=== PATIENT | male | born 1980 | race Caucasian/White ===

== ENCOUNTER 2021-02-20 17:53 | Emergency (ER) | payer OTHER, SELFPAY ==
[2021-02-20 17:59] VITALS: BP 133/88; PULSE 103; RESP 18; O2SAT 98; BMI 20.7
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
[2021-02-20 18:05] VITALS: BP 133/88; PULSE 101; RESP 18; TEMP 36.8; O2SAT 99
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
[2021-02-20] MEDS: acetaminophen 500 mg Tablet 1000 MG PO (18:57)
[2021-02-20] MEDS: ibuprofen 200 mg Tablet 400 MG PO (19:13)
[2021-02-20 19:29] VITALS: BP 128/79; PULSE 74; O2SAT 98
== END 2021-02-20 19:32 | disposition home or self-care (01) ==
PROVIDERS: Emergency Provider Nurse Practitioner Family; PCP Nurse Practitioner
DX: S50.312A Abrasion of left elbow, initial encounter (principal); S70.02XA Contusion of left hip, initial encounter; V23.4XXA Motorcycle driver injured in collision with car, pick-up truck or van in traffic accident, initial encounter
CPT/HCPCS: 72100; 72125; 73080; 73502; 73610; 99283; E0114

== ENCOUNTER 2023-06-21 05:22 | Emergency (ER) | payer SELFPAY ==
[2023-06-21 05:28] VITALS: BP 157/100; PULSE 93; RESP 20; TEMP 36.6; O2SAT 98; BMI 22.1
--- NOTE | 2023-06-21 05:34 | CTR_ITS ---
PROCEDURE INFORMATION: Exam: CT Abdomen And Pelvis Without Contrast Exam date and time: 06/21/2023 5:39 AM Age: 42 years old Clinical indication: Abdominal pain; Prior surgery; Surgery date: 6+ months; Surgery type: Hemorrhoidectomy; Patient HX: C/O left flank pain. TECHNIQUE: Imaging protocol: Computed tomography of the abdomen and pelvis without contrast. Radiation optimization: All CT scans at this facility use at least one of these dose optimization techniques: automated exposure control; mA and/or kV adjustment per patient size (includes targeted exams where dose is matched to clinical indication); or iterative reconstruction. COMPARISON: CR XR hip LT 2-3V wo/w pel* [id number] 02/20/2021 6:27 PM RADIATION DOSE METRICS: Total DLP (mGy-cm): 334.13 FINDINGS: Lungs: Lung bases are clear as visualized. Heart: Base of heart is unremarkable as visualized. Liver: Normal. No mass. Gallbladder and bile ducts: Normal. No calcified stones. No ductal dilation. Pancreas: Normal. No ductal dilation. Spleen: There are multiple hypoattenuation scattered throughout the spleen the 2 largest of which are appreciated in the posterior aspect, the largest of the hypoattenuation measures a proximally 2.4 x 2.4 x 2.4 cm, and demonstrates a fluid internal attenuation. Adrenal glands: Normal. No mass. Kidneys and ureters: Within the proximal ureter just distal to the left ureteropelvic junction there is a calcified 4 mm nephrolith. There is upstream pelvic dilation and left mild hydronephrosis. Stomach and bowel: Unremarkable. No obstruction. No mucosal thickening. Appendix: No evidence of appendicitis. Intraperitoneal space: Unremarkable. No free air. No significant fluid collection. Vasculature: Unremarkable. No abdominal aortic aneurysm. Lymph nodes: Unremarkable. No enlarged lymph nodes. Urinary bladder: Unremarkable as visualized. Reproductive: Unremarkable as visualized. Bones/joints: Unremarkable. No acute fracture. Soft tissues: Unremarkable. CT/CT kidney stone [id number] IMPRESSION: 1. Obstructing nephroliths within the left proximal ureter with associated upstream pelvic dilation and mild left hydronephrosis. 2. Multiple fluid attenuating hypoattenuation within the spleen, nonspecific, may represent pseudocyst, congenital cysts, lymphangioma, less likely malignancy/infection. Correlate with clinical signs and symptoms, outpatient imaging as clinically appropriate.
--- NOTE | 2023-06-21 05:35 | W.ED.ABDPA2 ---
Documented by User: Spencer Garrido DO 06/23/23 19:46 HPI - Abdominal Pain General: Chief Complaint: Abdominal Pain Stated Complaint: Left side pain Time Seen by Provider: 06/21/23 05:25 History of Present Illness: Patient presents to the ER with complaints of sudden onset stabbing left flank pain. Patient said it woke him up from sleep couple hours ago. Patient does not radiate. Patient does have nausea with this. Patient does have a history of kidney stones in the distant past. Patient denies any fevers chills Review of Systems General: Reports: 10 or more systems reviewed and unremarkable except in HPI and below Physical Exam Const: COMMON NORMALS: average body habitus, patient oriented x3, no limitations, healthy appearing, alert and well nourished HENMT: COMMON NORMALS: normocephalic, atraumatic, hearing grossly normal bilaterally, Normal external nose present, moist oral mucous membranes and oropharynx normal HEAD & SCALP: normocephalic and atraumatic NOSE: Normal external nose present Neck/C-Spine: COMMON NORMALS: no JVD Chest: COMMONS NORMALS: normal inspection of the chest Resp: COMMON NORMALS: normal respiratory effort, No retractions, No use of accessory muscles and clear to auscultation bilaterally AUSCULTATION: clear to auscultation bilaterally Cardio: COMMON NORMALS: no JVD, regular rate, regular rhythm, S1 normal heart sound present, S2 normal heart sound present, No gallops present (Cardio), No clicks present (Cardio) and No murmurs present (Cardio) RATE: regular rate RHYTHM: regular rhythm HEART SOUNDS: S1 normal heart sound present and S2 normal heart sound present GI: COMMON NORMALS: Normal to inspection, nondistended, normoactive bowel sounds present, Soft to palpation, non-tender, No hepatosplenomegaly present and no masses PALPATION: Yes Soft to palpation and Yes No hepatosplenomegaly present Neuro: COMMON NORMALS: patient oriented x3 SENSORIUM/ORIENTATION: Yes alert Course Vital Signs: Vital signs: Vital Signs Temperature 97.8 F 06/21/23 05:28 Pulse Rate 73 06/21/23 07:38 Respiratory Rate 18 06/21/23 06:41 Blood Pressure 118/72 06/21/23 07:38 Pulse Oximetry 96 06/21/23 07:38 Oxygen Delivery Me thod Room Air 06/21/23 06:41 MDM - Abdominal Pain Differential Diagnosis Likely calculus of kidney; Unlikely abdominal pain, acute appendicitis, constipation, diverticulitis, endometriosis, gastroenteritis, pancreatitis or small bowel obstruction Medical Records I reviewed the patient's medical records. Lab Data I reviewed the patient's lab results. 06/21/23 05:30 06/21/23 05:30 Labs/Radiology: Radiology Impressions Abdomen/Pelvis CT 06/21/23 05:34 IMPRESSION: 1. Obstructing nephroliths within the left proximal ureter with associated upstream pelvic dilation and mild left hydronephrosis. 2. Multiple fluid attenuating hypoattenuation within the spleen, nonspecific, may represent pseudocyst, congenital cysts, lymphangioma, less likely malignancy/infection. Correlate with clinical signs and symptoms, outpatient imaging as clinically appropriate. Laboratory Results WBC 9.28 10^3/uL (3.29-11.43) 06/21/23 05:30 RBC 4.96 10^6/uL (3.85-5.65) 06/21/23 05:30 Hgb 15.70 g/dL (11.27-16.99) 06/21/23 05:30 Hct 44.1 % (37-53) 06/21/23 05:30 MCV 88.9 fl (82-101) 06/21/23 05:30 MCH 31.7 pg (27-33) 06/21/23 05:30 MCHC 35.6 g/dL (30-55) 06/21/23 05:30 RDW 11.7 % (12.1-15.1) L 06/21/23 05:30 Plt Count 242 10^3/cmm (157-399) 06/21/23 05:30 MPV 8.6 fL (7.4-10.4) 06/21/23 05:30 Neut % (Auto) 82.3 % 06/21/23 05:30 Lymph % (Auto) 11.0 % 06/21/23 05:30 [place] % (Auto) 5.5 % 06/21/23 05:30 Eos % (Auto) 0.6 % 06/21/23 05:30 Baso % (Auto) 0.4 % 06/21/23 05:30 Neut # (Auto) 7.63 10^3/uL (1.8-7.7) 06/21/23 05:30 Lymph # (Auto) 1.0 10^3/uL (0.8-4.8) 06/21/23 05:30 [place] # (Auto) 0.5 10^3/uL (0.2-0.9) 06/21/23 05:30 Eos # (Auto) 0.1 10^3/uL (0.0-0.8) 06/21/23 05:30 Baso # (Auto) 0.0 10^3/uL (0.0-0.1) 06/21/23 05:30 Nucleated RBC % (auto) 0 % 06/21/23 05:30 Nucleated RBCs # 0.0 /100WBC 06/21/23 05:30 Sodium 141 mmol/L (136-145) 06/21/23 05:30 Potassium 4.1 mmol/L (3.5-5.1) 06/21/23 05:30 Chloride 104 mmol/L (98-107) 06/21/23 05:30 Carbon Dioxide 21 mmol/L (22-29) L 06/21/23 05:30 Anion Gap 20.1 (5-19) H 06/21/23 05:30 BUN 17 mg/dL (6-20) 06/21/23 05:30 Creatinine 1.0 mg/dL (0.7-1.2) 06/21/23 05:30 GFR Calculation 82.8 mL/min (90-130) L 06/21/23 05:30 Glucose 126 mg/dL (65-115) H 06/21/23 05:30 Calculated Osmolality 295 mOsm/kg (285-295) 06/21/23 05:30 Calcium 10.2 mg/dL (8.5-10.5) 06/21/23 05:30 Total Bilirubin 0.7 mg/dL (0.15-1.2) 06/21/23 05:30 AST 22 U/L (0-40) 06/21/23 05:30 ALT 14 U/L (0-41) 06/21/23 05:30 Alkaline Phosphatase 90 U/L (40-130) 06/21/23 05:30 Total Protein 8.1 g/dL (6.6-8.7) 06/21/23 05:30 Albumin 4.9 g/dL (3.5-5.2) 06/21/23 05:30 Globulin 3.2 g/dL (1.3-4.6) 06/21/23 05:30 Urine Color Straw (Yellow) 06/21/23 06:42 Urine Appearance Clear (CLEAR) 06/21/23 06:42 Urine pH 8 (5-7) H 06/21/23 06:42 Ur Specific [place] 1.010 (1.005-1.030) 06/21/23 06:42 Urine Protein Neg (Negative) 06/21/23 06:42 Urine Glucose (UA) Norm (Normal) 06/21/23 06:42 Urine Ketones 1+ (Negative) H 06/21/23 06:42 Urine Blood 2+ (Negative) H 06/21/23 06:42 Urine Nitrate Negative (Negative) 06/21/23 06:42 Urine Bilirubin Neg (Negative) 06/21/23 06:42 Prot Sulfosalicylic Acd Negative (Negative) 06/21/23 06:42 Urine Urobilinogen Norm mg/dL (Negative) 06/21/23 06:42 Ur Leukocyte Esterase Negative (Negative) 06/21/23 06:42 Urine RBC 0-4 /hpf (0-2) H 06/21/23 06:42 Urine WBC None /hpf (0-5) 06/21/23 06:42 Ur Squamous Epith Cells None /hpf (0-5) 06/21/23 06:42 Amorphous Sediment 2+ /hpf 06/21/23 06:42 Urine Bacteria 1+ /hpf (NONE) H 06/21/23 06:42 All radiology interpretation(s) finalized by discharge Discharge Plan Discharge Patient Disposition: Home Clinical Impression: Kidney stone on left side Condition: Stable Prescriptions: New ondansetron 4 mg tablet,disintegrating 4 mg PO Q6H PRN (Reason: nausea and vomiting) Qty: 20 0RF hydrocodone-acetaminophen 5-325 mg tablet 1 tab PO Q8H PRN (Reason: pain) Qty: 20 0RF Flomax 0.4 mg capsule 0.4 mg PO DAILY Qty: 7 0RF No Action hydrocodone-acetaminophen 5-325 mg tablet 1 tab PO Q6H PRN (Reason: pain) Qty: 7 0RF Discharge Orders: Discharge ED (Routine); Ordered 06/21/23 Ordered By: Angelo Cason Referrals: Guillermina Sauer STREETS AND BUILDINGS DECORATOR [Primary Care Provider] - 4-7 days Discharge Diet: Advance as tolerated Discharge Activity: Resume usual activity Patient Instructions: Kidney Stones (ED), Renal Colic (ED), Opioid Safety, Pain Management Activity Restrictions/Additional Instructions: Drink plenty of fluids in the next 1 week, please take medications as prescribed in which please further follow-up with your primary care doctor in 3 to 5 days in which please return in the interim if any of your symptoms persist or worse Stand Alone Forms: Work/School Release Coding Level of Care Code ED Fur Scraper for Chg Fwd Documented by User: Angelo Cason 06/21/23 07:26 HPI - Abdominal Pain General: Chief Complaint: Abdominal Pain Stated Complaint: Left side pain Time Seen by Provider: 06/21/23 05:25 Course Vital Signs: Vital signs: Vital Signs Temperature 97.8 F 06/21/23 05:28 Pulse Rate 73 06/21/23 07:38 Respiratory Rate 18 06/21/23 06:41 Blood Pressure 118/72 06/21/23 07:38 Pulse Oximetry 96 06/21/23 07:38 Oxygen Delivery Me thod Room Air 06/21/23 06:41 MDM - Abdominal Pain Medical Decision Making This patient was signed out to myself Dr. Cason by Dr. Garrido please refer to him for additional charting in regards to this Lab Data 06/21/23 05:30 06/21/23 05:30 Labs/Radiology: Radiology Impressions Abdomen/Pelvis CT 06/21/23 05:34 IMPRESSION: 1. Obstructing nephroliths within the left proximal ureter with associated upstream pelvic dilation and mild left hydronephrosis. 2. Multiple fluid attenuating hypoattenuation within the spleen, nonspecific, may represent pseudocyst, congenital cysts, lymphangioma, less likely malignancy/infection. Correlate with clinical signs and symptoms, outpatient imaging as clinically appropriate. Laboratory Results WBC 9.28 10^3/uL (3.29-11.43) 06/21/23 05:30 RBC 4.96 10^6/uL (3.85-5.65) 06/21/23 05:30 Hgb 15.70 g/dL (11.27-16.99) 06/21/23 05:30 Hct 44.1 % (37-53) 06/21/23 05:30 MCV 88.9 fl (82-101) 06/21/23 05:30 MCH 31.7 pg (27-33) 06/21/23 05:30 MCHC 35.6 g/dL (30-55) 06/21/23 05:30 RDW 11.7 % (12.1-15.1) L 06/21/23 05:30 Plt Count 242 10^3/cmm (157-399) 06/21/23 05:30 MPV 8.6 fL (7.4-10.4) 06/21/23 05:30 Neut % (Auto) 82.3 % 06/21/23 05:30 Lymph % (Auto) 11.0 % 06/21/23 05:30 [place] % (Auto) 5.5 % 06/21/23 05:30 Eos % (Auto) 0.6 % 06/21/23 05:30 Baso % (Auto) 0.4 % 06/21/23 05:30 Neut # (Auto) 7.63 10^3/uL (1.8-7.7) 06/21/23 05:30 Lymph # (Auto) 1.0 10^3/uL (0.8-4.8) 06/21/23 05:30 [place] # (Auto) 0.5 10^3/uL (0.2-0.9) 06/21/23 05:30 Eos # (Auto) 0.1 10^3/uL (0.0-0.8) 06/21/23 05:30 Baso # (Auto) 0.0 10^3/uL (0.0-0.1) 06/21/23 05:30 Nucleated RBC % (auto) 0 % 06/21/23 05:30 Nucleated RBCs # 0.0 /100WBC 06/21/23 05:30 Sodium 141 mmol/L (136-145) 06/21/23 05:30 Potassium 4.1 mmol/L (3.5-5.1) 06/21/23 05:30 Chloride 104 mmol/L (98-107) 06/21/23 05:30 Carbon Dioxide 21 mmol/L (22-29) L 06/21/23 05:30 Anion Gap 20.1 (5-19) H 06/21/23 05:30 BUN 17 mg/dL (6-20) 06/21/23 05:30 Creatinine 1.0 mg/dL (0.7-1.2) 06/21/23 05:30 GFR Calculation 82.8 mL/min (90-130) L 06/21/23 05:30 Glucose 126 mg/dL (65-115) H 06/21/23 05:30 Calculated Osmolality 295 mOsm/kg (285-295) 06/21/23 05:30 Calcium 10.2 mg/dL (8.5-10.5) 06/21/23 05:30 Total Bilirubin 0.7 mg/dL (0.15-1.2) 06/21/23 05:30 AST 22 U/L (0-40) 06/21/23 05:30 ALT 14 U/L (0-41) 06/21/23 05:30 Alkaline Phosphatase 90 U/L (40-130) 06/21/23 05:30 Total Protein 8.1 g/dL (6.6-8.7) 06/21/23 05:30 Albumin 4.9 g/dL (3.5-5.2) 06/21/23 05:30 Globulin 3.2 g/dL (1.3-4.6) 06/21/23 05:30 Urine Color Straw (Yellow) 06/21/23 06:42 Urine Appearance Clear (CLEAR) 06/21/23 06:42 Urine pH 8 (5-7) H 06/21/23 06:42 Ur Specific [place] 1.010 (1.005-1.030) 06/21/23 06:42 Urine Protein Neg (Negative) 06/21/23 06:42 Urine Glucose (UA) Norm (Normal) 06/21/23 06:42 Urine Ketones 1+ (Negative) H 06/21/23 06:42 Urine Blood 2+ (Negative) H 06/21/23 06:42 Urine Nitrate Negative (Negative) 06/21/23 06:42 Urine Bilirubin Neg (Negative) 06/21/23 06:42 Prot Sulfosalicylic Acd Negative (Negative) 06/21/23 06:42 Urine Urobilinogen Norm mg/dL (Negative) 06/21/23 06:42 Ur Leukocyte Esterase Negative (Negative) 06/21/23 06:42 Urine RBC 0-4 /hpf (0-2) H 06/21/23 06:42 Urine WBC None /hpf (0-5) 06/21/23 06:42 Ur Squamous Epith Cells None /hpf (0-5) 06/21/23 06:42 Amorphous Sediment 2+ /hpf 06/21/23 06:42 Urine Bacteria 1+ /hpf (NONE) H 06/21/23 06:42 Discharge Plan Discharge Patient Disposition: Home Clinical Impression: Kidney stone on left side Condition: Stable Prescriptions: New ondansetron 4 mg tablet,disintegrating 4 mg PO Q6H PRN (Reason: nausea and vomiting) Qty: 20 0RF hydrocodone-acetaminophen 5-325 mg tablet 1 tab PO Q8H PRN (Reason: pain) Qty: 20 0RF Flomax 0.4 mg capsule 0.4 mg PO DAILY Qty: 7 0RF No Action hydrocodone-acetaminophen 5-325 mg tablet 1 tab PO Q6H PRN (Reason: pain) Qty: 7 0RF Discharge Orders: Discharge ED (Routine); Ordered 06/21/23 Ordered By: Angelo Cason Referrals: Guillermina Sauer, STREETS AND BUILDINGS DECORATOR [Primary Care Provider] - 4-7 days Discharge Diet: Advance as tolerated Discharge Activity: Resume usual activity Patient Instructions: Kidney Stones (ED), Renal Colic (ED), Opioid Safety, Pain Management Activity Restrictions/Additional Instructions: Drink plenty of fluids in the next 1 week, please take medications as prescribed in which please further follow-up with your primary care doctor in 3 to 5 days in which please return in the interim if any of your symptoms persist or worse Stand Alone Forms: Work/School Release Coding Level of Care Code ED Fur Scraper for Arik Ortiz
[2023-06-21 05:39] VITALS: BP 146/87; RESP 22
[2023-06-21 05:40] LABS: Basophils % 0.4 %; Eosinophils # 0.1 10^3/uL (0.0-0.8); Eosinophils % 0.6 %; Hematocrit 44.1 % (37-53); Mean Corpuscular HGB Conc 35.6 g/dL (30-55); Mean Corpuscular Hemoglobin 31.7 pg (27-33); Mean Corpuscular Volume 88.9 fl (82-101); Mean Platelet Volume 8.6 fL (7.4-10.4); Monocytes # 0.5 10^3/uL (0.2-0.9); Monocytes % 5.5 %; Neutrophils # 7.63 10^3/uL (1.8-7.7); Neutrophils % 82.3 %; Nucleated Red Blood Cells % 0 %; Platelet Count 242 10^3/cmm (157-399); Red Blood Count 4.96 10^6/uL (3.85-5.65); Red Cell Distribution Width 11.7 % (12.1-15.1); White Blood Count 9.28 10^3/uL (3.29-11.43)
[2023-06-21] MEDS: sodium chloride 0.9% 1,000 ML 999 ML IV (05:48)
[2023-06-21] MEDS: ondansetron 2 mg/ML SDV 2 mL 4 MG IVP (05:49)
[2023-06-21] MEDS: ketorolac 30 mg/mL INJ IVP (05:51)
--- NOTE | 2023-06-21 05:55 | W.ED.ABDPA2 ---
HPI - Abdominal Pain General: Chief Complaint: Abdominal Pain Stated Complaint: Left side pain Time Seen by Provider: 06/21/23 05:25 History of Present Illness: This patient was signed out to myself by Dr. Garrido please see Dr. Garrido chart in regards to additional information Course Reevaluation(s): Reevaluation #1: This patient was signed out to myself Dr. Cason by Dr. Garrido at 0600 patient has a known history of kidney stones presenting to the ER with a chief complaint of flank pain as well as abdominal pain with nausea with vomiting. Patient did not endorse any recent fevers or chills. Currently patient's imaging has been obtained lab work is partially resulted with no white blood cell count elevation with normal platelet count. Patient has been provided medication for his pain and nausea will continue to follow. Vital Signs: Vital signs: Vital Signs Temperature 97.8 F 06/21/23 05:28 Pulse Rate 65 06/21/23 06:41 Respiratory Rate 18 06/21/23 06:41 Blood Pressure 110/63 06/21/23 06:41 Pulse Oximetry 96 06/21/23 06:41 Oxygen Delivery Me thod Room Air 06/21/23 06:41 MDM - Abdominal Pain Medical Decision Making This patient was signed out to myself Dr. Cason by Dr. Garrido please see his chart for additional information. Lab Data 06/21/23 05:30 06/21/23 05:30 Labs/Radiology: Radiology Impressions Abdomen/Pelvis CT 06/21/23 05:34 IMPRESSION: 1. Obstructing nephroliths within the left proximal ureter with associated upstream pelvic dilation and mild left hydronephrosis. 2. Multiple fluid attenuating hypoattenuation within the spleen, nonspecific, may represent pseudocyst, congenital cysts, lymphangioma, less likely malignancy/infection. Correlate with clinical signs and symptoms, outpatient imaging as clinically appropriate. Laboratory Results WBC 9.28 10^3/uL (3.29-11.43) 06/21/23 05:30 RBC 4.96 10^6/uL (3.85-5.65) 06/21/23 05:30 Hgb 15.70 g/dL (11.27-16.99) 06/21/23 05:30 Hct 44.1 % (37-53) 06/21/23 05:30 MCV 88.9 fl (82-101) 06/21/23 05:30 MCH 31.7 pg (27-33) 06/21/23 05:30 MCHC 35.6 g/dL (30-55) 06/21/23 05:30 RDW 11.7 % (12.1-15.1) L 06/21/23 05:30 Plt Count 242 10^3/cmm (157-399) 06/21/23 05:30 MPV 8.6 fL (7.4-10.4) 06/21/23 05:30 Neut % (Auto) 82.3 % 06/21/23 05:30 Lymph % (Auto) 11.0 % 06/21/23 05:30 [place] % (Auto) 5.5 % 06/21/23 05:30 Eos % (Auto) 0.6 % 06/21/23 05:30 Baso % (Auto) 0.4 % 06/21/23 05:30 Neut # (Auto) 7.63 10^3/uL (1.8-7.7) 06/21/23 05:30 Lymph # (Auto) 1.0 10^3/uL (0.8-4.8) 06/21/23 05:30 [place] # (Auto) 0.5 10^3/uL (0.2-0.9) 06/21/23 05:30 Eos # (Auto) 0.1 10^3/uL (0.0-0.8) 06/21/23 05:30 Baso # (Auto) 0.0 10^3/uL (0.0-0.1) 06/21/23 05:30 Nucleated RBC % (auto) 0 % 06/21/23 05:30 Nucleated RBCs # 0.0 /100WBC 06/21/23 05:30 Sodium 141 mmol/L (136-145) 06/21/23 05:30 Potassium 4.1 mmol/L (3.5-5.1) 06/21/23 05:30 Chloride 104 mmol/L (98-107) 06/21/23 05:30 Carbon Dioxide 21 mmol/L (22-29) L 06/21/23 05:30 Anion Gap 20.1 (5-19) H 06/21/23 05:30 BUN 17 mg/dL (6-20) 06/21/23 05:30 Creatinine 1.0 mg/dL (0.7-1.2) 06/21/23 05:30 GFR Calculation 82.8 mL/min (90-130) L 06/21/23 05:30 Glucose 126 mg/dL (65-115) H 06/21/23 05:30 Calculated Osmolality 295 mOsm/kg (285-295) 06/21/23 05:30 Calcium 10.2 mg/dL (8.5-10.5) 06/21/23 05:30 Total Bilirubin 0.7 mg/dL (0.15-1.2) 06/21/23 05:30 AST 22 U/L (0-40) 06/21/23 05:30 ALT 14 U/L (0-41) 06/21/23 05:30 Alkaline Phosphatase 90 U/L (40-130) 06/21/23 05:30 Total Protein 8.1 g/dL (6.6-8.7) 06/21/23 05:30 Albumin 4.9 g/dL (3.5-5.2) 06/21/23 05:30 Globulin 3.2 g/dL (1.3-4.6) 06/21/23 05:30 Urine Color Straw (Yellow) 06/21/23 06:42 Urine Appearance Clear (CLEAR) 06/21/23 06:42 Urine pH 8 (5-7) H 06/21/23 06:42 Ur Specific [place] 1.010 (1.005-1.030) 06/21/23 06:42 Urine Protein Neg (Negative) 06/21/23 06:42 Urine Glucose (UA) Norm (Normal) 06/21/23 06:42 Urine Ketones 1+ (Negative) H 06/21/23 06:42 Urine Blood 2+ (Negative) H 06/21/23 06:42 Urine Nitrate Negative (Negative) 06/21/23 06:42 Urine Bilirubin Neg (Negative) 06/21/23 06:42 Prot Sulfosalicylic Acd Negative (Negative) 06/21/23 06:42 Urine Urobilinogen Norm mg/dL (Negative) 06/21/23 06:42 Ur Leukocyte Esterase Negative (Negative) 06/21/23 06:42 Urine RBC 0-4 /hpf (0-2) H 06/21/23 06:42 Urine WBC None /hpf (0-5) 06/21/23 06:42 Ur Squamous Epith Cells None /hpf (0-5) 06/21/23 06:42 Amorphous Sediment 2+ /hpf 06/21/23 06:42 Urine Bacteria 1+ /hpf (NONE) H 06/21/23 06:42 All radiology interpretation(s) finalized by discharge Discharge Plan Discharge Patient Disposition: Home Clinical Impression: Kidney stone on left side Condition: Stable Prescriptions: New ondansetron 4 mg tablet,disintegrating 4 mg PO Q6H PRN (Reason: nausea and vomiting) Qty: 20 0RF hydrocodone-acetaminophen 5-325 mg tablet 1 tab PO Q8H PRN (Reason: pain) Qty: 20 0RF Flomax 0.4 mg capsule 0.4 mg PO DAILY Qty: 7 0RF No Action hydrocodone-acetaminophen 5-325 mg tablet 1 tab PO Q6H PRN (Reason: pain) Qty: 7 0RF Discharge Orders: Discharge ED (Routine); Ordered 06/21/23 Ordered By: Angelo Cason Referrals: Guillermina Sauer DEBONING TEAM LEADER [Primary Care Provider] - 4-7 days Discharge Diet: Advance as tolerated Discharge Activity: Resume usual activity Patient Instructions: Kidney Stones (ED), Renal Colic (ED), Opioid Safety, Pain Management Activity Restrictions/Additional Instructions: Drink plenty of fluids in the next 1 week, please take medications as prescribed in which please further follow-up with your primary care doctor in 3 to 5 days in which please return in the interim if any of your symptoms persist or worse Stand Alone Forms: Work/School Release Coding Level of Care Code ED [employer] 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
[2023-06-21 06:02] LABS: Alanine Aminotransferase 14 U/L (0-41); Albumin Level 4.9 g/dL (3.5-5.2); Alkaline Phosphatase 90 U/L (40-130); Anion Gap 20.1 (5-19); Aspartate Amino Transferase 22 U/L (0-40); Blood Urea Nitrogen 17 mg/dL (6-20); Calcium 10.2 mg/dL (8.5-10.5); Carbon Dioxide 21 mmol/L (22-29); Chloride 104 mmol/L (98-107); Globulin 3.2 g/dL (1.3-4.6); Glomerular Filtration Rate 82.8 mL/min (90-130); Glucose 126 mg/dL (65-115); Osmolality Calculated 295 mOsm/kg (285-295); Potassium 4.1 mmol/L (3.5-5.1); Sodium 141 mmol/L (136-145); Total Bilirubin 0.7 mg/dL (0.15-1.2); Total Protein 8.1 g/dL (6.6-8.7)
[2023-06-21] MEDS: tamsulosin 0.4 mg Capsule PO (06:38)
[2023-06-21 06:41] VITALS: BP 110/63; PULSE 65; RESP 18; O2SAT 96
[2023-06-21 07:16] LABS: Add Urine Microscopic? YES; Bilirubin Urine Neg (Negative); Blood Urine 2+ (Negative); Glucose Urine UA Norm (Normal); Ketones Urine 1+ (Negative); Leukocyte Esterase Urine Negative (Negative); Nitrate Urine Negative (Negative); Protein Urine Neg (Negative); RBC Urine 0-4 /hpf (0-2); Sulfosalicylic Acid Urine Negative (Negative); Urine Appearance Clear (CLEAR); Urine Color Straw (Yellow); Urobilinogen Urine Norm (Negative); pH Urine 8 (5-7)
[2023-06-21 07:17] LABS: Add Urine Culture? No; Amorphous Sediment Urine 2+ /hpf; Bacteria Urine 1+ /hpf
[2023-06-21 07:38] VITALS: BP 118/72; PULSE 73; O2SAT 96
== END 2023-06-21 07:40 | disposition home or self-care (01) ==
PROVIDERS: Emergency Medicine; Emergency Provider Emergency Medicine; PCP Nurse Practitioner
DX: N20.0 Calculus of kidney (principal)
CPT/HCPCS: 74176; 80053; 81001; 85025; 96361; 96374; 96375; 99285; J1885; J2405; J7030

== ENCOUNTER 2023-07-09 01:00 | Emergency (ER) | payer SELFPAY ==
[2023-07-09 01:06] VITALS: BP 156/90; PULSE 107; RESP 18; TEMP 36.7; O2SAT 100; BMI 22.1
--- NOTE | 2023-07-09 01:14 | CTR_ITS ---
PROCEDURE INFORMATION: Exam: CT Abdomen And Pelvis Without Contrast Exam date and time: 07/09/2023 1:43 AM Age: 42 years old Clinical indication: Abdominal pain; Flank; Left; Prior surgery; Surgery date: 6+ months; Surgery type: Hemroids removed 10 years ago; Additional info: Left flank pain TECHNIQUE: Imaging protocol: Computed tomography of the abdomen and pelvis without contrast. Radiation optimization: All CT scans at this facility use at least one of these dose optimization techniques: automated exposure control; mA and/or kV adjustment per patient size (includes targeted exams where dose is matched to clinical indication); or iterative reconstruction. COMPARISON: CT kidney stone [id number] 06/21/2023 5:39 AM RADIATION DOSE METRICS: Total DLP (mGy-cm): 357.65 FINDINGS: Liver: Normal. No mass. Gallbladder and bile ducts: Normal. No calcified stones. No ductal dilation. Pancreas: Normal. No ductal dilation. Spleen: There are multiple hypodense lesions in the spleen measuring up to 2.6 cm and 23 Hounsfield units which are indeterminate and incompletely assessed on this examination. If clinically indicated a splenic MRI may be obtained for further evaluation these findings. Adrenal glands: Normal. No mass. Kidneys and ureters: There is an obstructing 4 mm stone in the distal left ureter with upstream hydroureter and mild hydronephrosis. Stomach and bowel: Unremarkable. No obstruction. No mucosal thickening. Appendix: No evidence of appendicitis. Intraperitoneal space: Unremarkable. No free air. No significant fluid collection. Vasculature: Unremarkable. No abdominal aortic aneurysm. Lymph nodes: Unremarkable. No enlarged lymph nodes. Urinary bladder: Unremarkable as visualized. Reproductive: Unremarkable as visualized. Bones/joints: Unremarkable. No acute fracture. Soft tissues: Unremarkable. CT/CT kidney stone [id number] IMPRESSION: There is an obstructing 4 mm stone in the distal left ureter with upstream hydroureter and mild hydronephrosis.
--- NOTE | 2023-07-09 01:15 | ED_ITS ---
HPI - Male Genitourinary 2 General: Chief complaint: Urogenital-Male Stated complaint: Abd pain Time Seen by Provider: 07/09/23 01:03 Source: patient Mode of arrival: ambulatory Limitations: no limitations History of Present Illness: 42-year-old male seen here 2 weeks ago a nd had a kidney stone he states he believes he had passed that stone as he had had no pain up until roughly an hour ago he started having severe left-sided flank pain again 1 hour ago states it is radiating to his groin he has had nausea he rates the pain a 10 out of 10. He denies any fevers denies any worse improved factors. Associated symptoms: Reports nausea; Deny dysuria or vomiting Review of Systems 2 Const: Denies: fever(s) or chills ENMT: Denies: throat pain or dental pain Card: Denies: chest pain Resp: Denies: dyspnea GI: Reports: abdominal pain and nausea; Denies: vomiting or diarrhea : Denies: dysuria Musc: Denies: neck pain or back pain Skin/Breast: Denies: rash Neuro: Denies: headache(s) Physical Exam 2 Const: COMMON NORMALS: patient oriented x3 and healthy appearing HENMT: COMMON NORMALS: normocephalic and atraumatic HEAD & SCALP: n ormocephalic and atraumatic Eye: COMMON NORMALS: conjunctivae normal CONJUNCTIVA: Yes conjunctivae normal Neck/C-Spine: COMMON NORMALS: full ROM and supple Chest: COMMONS NORMALS: normal inspection of the chest Resp: COMMON NORMALS: normal respiratory effort Cardio: COMMON NORMALS: regular rate, regular rhythm and No murmurs present (Cardio) RATE: regular rate RHYTHM: regular rhythm GI: COMMON NORMALS: Normal to inspection, nondistended, normoactive bowel sounds present, Soft to palpation, non-tender and no masses PALPATION: Yes Soft to palpation Extremity: COMMON NORMALS: normal to inspection and full ROM Neuro: COMMON NORMALS: patient oriented x3, moves all extremities and no focal motor deficits Psych: COMMON NORMALS: mental status grossly normal, Normal thought process present and cooperative THOUGHT PROCESS: Normal thought process present Skin: COMMON NORMALS: no rashes or lesions noted and no wounds GENERAL SKIN EXAM: no rashes or lesions noted Course 2 Vital Signs: Vital signs: Vital Signs Temperature 98.1 F 07/09/23 01:06 Pulse Rate 63 02/21/24 02:08 Respiratory Rate 18 07/09/23 01:06 Blood Pressure 111/81 07/09/23 02:08 Pulse Oximetry 100 07/09/23 02:08 Oxygen Delivery Me thod Nasal Cannula 07/09/23 02:08 Oxygen Flow Rate 1.5 07/09/23 02:08 MDM - Male Medical Decision Making Patient presents for flank pain CT does show a kidney stone his pain is resolved here we will prescribe him pain meds Flomax for home along with a strainer to use. He is follow-up with urology return if worsening he understands agrees to plan. Medical Records I reviewed the patient's medical records. Lab Data I reviewed the patient's lab results. 07/09/23 01:15 07/09/23 01:15 Radiology Impressions Abdomen/Pelvis CT 07/09/23 01:14 IMPRESSION: There is an obstructing 4 mm stone in the distal left ureter with upstream hydroureter and mild hydronephrosis. Laboratory Results WBC 7.08 10^3/uL (3.29-11.43) 07/09/23 01:15 RBC 4.86 10^6/uL (3.85-5.65) 07/09/23 01:15 Hgb 15.40 g/dL (11.27-16.99) 07/09/23 01:15 Hct 43.6 % (37-53) 07/09/23 01:15 MCV 89.7 fl (82-101) 07/09/23 01:15 MCH 31.7 pg (27-33) 07/09/23 01:15 MCHC 35.3 g/dL (30-55) 07/09/23 01:15 RDW 11.5 % (12.1-15.1) L 07/09/23 01:15 Plt Count 259 10^3/cmm (157-399) 07/09/23 01:15 MPV 8.9 fL (7.4-10.4) 07/09/23 01:15 Neut % (Auto) 55.0 % 07/09/23 01:15 Lymph % (Auto) 32.6 % 07/09/23 01:15 [place] % (Auto) 8.8 % 07/09/23 01:15 Eos % (Auto) 2.5 % 07/09/23 01:15 Baso % (Auto) 0.8 % 07/09/23 01:15 Neut # (Auto) 3.89 10^3/uL (1.8-7.7) 07/09/23 01:15 Lymph # (Auto) 2.3 10^3/uL (0.8-4.8) 07/09/23 01:15 [place] # (Auto) 0.6 10^3/uL (0.2-0.9) 07/09/23 01:15 Eos # (Auto) 0.2 10^3/uL (0.0-0.8) 07/09/23 01:15 Baso # (Auto) 0.1 10^3/uL (0.0-0.1) 07/09/23 01:15 Nucleated RBC % (auto) 0 % 07/09/23 01:15 Nucleated RBCs # 0.0 /100WBC 07/09/23 01:15 Sodium 138 mmol/L (136-145) 07/09/23 01:15 Potassium 4.1 mmol/L (3.5-5.1) 07/09/23 01:15 Chloride 100 mmol/L (98-107) 07/09/23 01:15 Carbon Dioxide 21 mmol/L (22-29) L 07/09/23 01:15 Anion Gap 21.1 (5-19) H 07/09/23 01:15 BUN 17 mg/dL (6-20) 07/09/23 01:15 Creatinine 1.2 mg/dL (0.7-1.2) 07/09/23 01:15 GFR Calculation 67.1 mL/min (90-130) L 07/09/23 01:15 Glucose 130 mg/dL (65-115) H 07/09/23 01:15 Calculated Osmolality 289 mOsm/kg (285-295) 07/09/23 01:15 Calcium 9.7 mg/dL (8.5-10.5) 07/09/23 01:15 Total Bilirubin 0.4 mg/dL (0.15-1.2) 07/09/23 01:15 AST 15 U/L (0-40) 07/09/23 01:15 ALT 10 U/L (0-41) 07/09/23 01:15 Alkaline Phosphatase 81 U/L (40-130) 07/09/23 01:15 Total Protein 7.9 g/dL (6.6-8.7) 07/09/23 01:15 Albumin 4.9 g/dL (3.5-5.2) 07/09/23 01:15 Globulin 3.0 g/dL (1.3-4.6) 07/09/23 01:15 Lipase 48 U/L (13-60) 07/09/23 01:15 Urine Color Yellow (Yellow) 07/09/23 02:40 Urine Appearance Sl hazy (CLEAR) A 07/09/23 02:40 Urine pH 6 (5-7) 07/09/23 02:40 Ur Specific [place] 1.025 (1.005-1.030) 07/09/23 02:40 Urine Protein Trace (Negative) 07/09/23 02:40 Urine Glucose (UA) Norm (Normal) 07/09/23 02:40 Urine Ketones 1+ (Negative) H 07/09/23 02:40 Urine Blood 3+ (Negative) H 07/09/23 02:40 Urine Nitrate Negative (Negative) 07/09/23 02:40 Urine Bilirubin Neg (Negative) 07/09/23 02:40 Urine Urobilinogen Neg mg/dL (Negative) 07/09/23 02:40 Ur Leukocyte Esterase Negative (Negative) 07/09/23 02:40 Urine RBC 25-40 /hpf (0-2) H 07/09/23 02:40 Urine WBC None /hpf (0-5) 07/09/23 02:40 Ur Squamous Epith Cells None /hpf (0-5) 07/09/23 02:40 Amorphous Sediment Not Reportable 07/09/23 02:40 Urine Bacteria 1+ /hpf (NONE) H 07/09/23 02:40 Urine Mucus 3+ /hpf 07/09/23 02:40 All radiology interpretation(s) finalized by discharge Discharge Plan Discharge Patient Disposition: Home Clinical Impression: Kidney stone Condition: Stable Prescriptions: New hydrocodone-acetaminophen 5-325 mg tablet 1 tab PO Q6H PRN (Reason: pain) Qty: 14 0RF ondansetron 4 mg tablet,disintegrating 4 mg PO Q6H PRN (Reason: nausea and vomiting) Qty: 14 0RF tamsulosin [Flomax] 0.4 mg capsule 0.4 mg PO DAILY Qty: 5 0RF No Action hydrocodone-acetaminophen 5-325 mg tablet 1 tab PO Q6H PRN (Reason: pain) Qty: 7 0RF ondansetron 4 mg tablet,disintegrating 4 mg PO Q6H PRN (Reason: nausea and vomiting) Qty: 20 0RF hydrocodone-acetaminophen 5-325 mg tablet 1 tab PO Q8H PRN (Reason: pain) Qty: 20 0RF Flomax 0.4 mg capsule 0.4 mg PO DAILY Qty: 7 0RF Discharge Orders: Discharge ED (Routine); Ordered 07/09/23 Ordered By: Lori Spann Referrals: Guillermina Sauer, DISPLAY CARD WRITER [Primary Care Provider] - Discharge Diet: Advance as tolerated Discharge Activity: Resume usual activity Patient Instructions: Kidney Stones (ED), Opioid Safety Coding Level of Care Code ED 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
[2023-07-09 01:21] LABS: Basophils # 0.1 10^3/uL (0.0-0.1); Basophils % 0.8 %; Eosinophils # 0.2 10^3/uL (0.0-0.8); Eosinophils % 2.5 %; Hematocrit 43.6 % (37-53); Lymphocytes # 2.3 10^3/uL (0.8-4.8); Lymphocytes % 32.6 %; Mean Corpuscular HGB Conc 35.3 g/dL (30-55); Mean Corpuscular Hemoglobin 31.7 pg (27-33); Mean Corpuscular Volume 89.7 fl (82-101); Mean Platelet Volume 8.9 fL (7.4-10.4); Monocytes # 0.6 10^3/uL (0.2-0.9); Monocytes % 8.8 %; Neutrophils # 3.89 10^3/uL (1.8-7.7); Nucleated Red Blood Cells % 0 %; Platelet Count 259 10^3/cmm (157-399); Red Blood Count 4.86 10^6/uL (3.85-5.65); Red Cell Distribution Width 11.5 % (12.1-15.1); White Blood Count 7.08 10^3/uL (3.29-11.43)
[2023-07-09] MEDS: HYDROmorphone 1 mg/mL INJ 1 mL IVP (01:25)
[2023-07-09] MEDS: sodium chloride 0.9% 1,000 ML 999 ML IV (01:26)
[2023-07-09] MEDS: ketorolac 30 mg/mL INJ 15 MG IVP (01:26)
[2023-07-09] MEDS: ondansetron 2 mg/ML SDV 2 mL 4 MG IVP (01:26)
[2023-07-09 01:38] LABS: Alanine Aminotransferase 10 U/L (0-41); Albumin Level 4.9 g/dL (3.5-5.2); Alkaline Phosphatase 81 U/L (40-130); Anion Gap 21.1 (5-19); Aspartate Amino Transferase 15 U/L (0-40); Blood Urea Nitrogen 17 mg/dL (6-20); Calcium 9.7 mg/dL (8.5-10.5); Carbon Dioxide 21 mmol/L (22-29); Chloride 100 mmol/L (98-107); Glomerular Filtration Rate 67.1 mL/min (90-130); Glucose 130 mg/dL (65-115); Lipase 48 U/L (13-60); Osmolality Calculated 289 mOsm/kg (285-295); Potassium 4.1 mmol/L (3.5-5.1); Sodium 138 mmol/L (136-145); Total Bilirubin 0.4 mg/dL (0.15-1.2); Total Protein 7.9 g/dL (6.6-8.7)
[2023-07-09 02:08] VITALS: BP 111/81; PULSE 63; O2SAT 100
[2023-07-09 02:55] LABS: Urine Color Yellow (Yellow)
[2023-07-09 02:56] LABS: Add Urine Microscopic? YES; Bacteria Urine 1+ /hpf; Bilirubin Urine Neg (Negative); Blood Urine 3+ (Negative); Glucose Urine UA Norm (Normal); Ketones Urine 1+ (Negative); Leukocyte Esterase Urine Negative (Negative); Mucus Urine 3+ /hpf; Nitrate Urine Negative (Negative); Protein Urine Trace (Negative); RBC Urine 25-40 /hpf (0-2); Specific Gravity, Urine 1.025 (1.005-1.030); Urine Appearance SL Hazy (CLEAR); Urobilinogen Urine Neg (Negative); pH Urine 6 (5-7)
[2023-07-09 02:57] LABS: Add Urine Culture? Yes
--- NOTE | 2023-07-11 09:02 | DCPLANNER ---
I called patient on 07/10/23 and he requested urology referral to be sent to [facility] urology. Patients chart was faxed on 07/11/23 at [phone]. [facility] to contact patient for appt. Fax sent to: [phone]
== END 2023-07-09 03:22 | disposition home or self-care (01) ==
PROVIDERS: Emergency Provider Emergency Medicine; PCP Nurse Practitioner
DX: N13.2 Hydronephrosis with renal and ureteral calculous obstruction (principal)
CPT/HCPCS: 74176; 80053; 81001; 83690; 85025; 87086; 96361; 96374; 96375; 99285; J1170; J1885; J2405; J7030

== ENCOUNTER 2023-10-20 03:27 | Emergency (ER) | payer SELFPAY ==
[2023-10-20 03:36] VITALS: BP 157/98; PULSE 96; RESP 24; TEMP 36.6; O2SAT 100; BMI 19.2
--- NOTE | 2023-10-20 03:43 | CTR_ITS ---
PROCEDURE INFORMATION: Exam: CT Abdomen And Pelvis Without Contrast Exam date and time: 10/20/2023 4:18 AM Age: 43 years old Clinical indication: Abdominal pain; Patient HX: C/O left flank pain with n/v. History of lithotripsy in jun 2023 for nephrolithiasis. TECHNIQUE: Imaging protocol: Computed tomography of the abdomen and pelvis without contrast. Radiation optimization: All CT scans at this facility use at least one of these dose optimization techniques: automated exposure control; mA and/or kV adjustment per patient size (includes targeted exams where dose is matched to clinical indication); or iterative reconstruction. COMPARISON: CT kidney stone [id number] 07/09/2023 1:43 AM RADIATION DOSE METRICS: Total DLP (mGy-cm): 336.17 FINDINGS: Liver: Three stable simple benign-appearing 1 cm, 5 mm and 4 mm cysts in the right lobe of the liver. No detectable liver mass. Gallbladder and bile ducts: No gallstones, gallbladder wall thickening or pericholecystic fluid. Common bile duct is not dilated. Pancreas: Unremarkable. No significant pancreatic duct dilation. Spleen: Two stable oval circumscribed hypodense nonspecific lesions in the spleen measuring 2.5 cm and 1.5 cm and measuring 22 Hounsfield units in density. The lesions are most likely cystic, less likely with homogeneous hypercellular structure. Adrenal glands: Normal. No adrenal mass. Kidneys and ureters: A 3 mm calculus in the left ureterovesical junction, resulting in mild left hydronephrosis and mild left hydroureter. The same calculus was present in the distal left ureter on 07/09/2023. No calculi in either kidney. No calculi in the right ureter. No right hydronephrosis. Stomach and bowel: No evidence of bowel obstruction, ileus, diverticulitis or colitis. No significant mucosal thickening. Appendix: No CT evidence of appendicitis. Intraperitoneal space: No free air or fluid in the abdomen. No abnormal fluid collection. Vasculature: Unremarkable. No abdominal aortic aneurysm. Lymph nodes: No abdominal lymphadenopathy. Urinary bladder: Unremarkable as visualized. Reproductive: The prostate is mildly enlarged measuring 4.2 cm x 3.1 cm. Bones/joints: No acute fracture. Soft tissues: Unremarkable. CT/CT kidney stone [id number] IMPRESSION: 1. A 3 mm calculus in the left ureterovesical junction, resulting in mild left hydronephrosis and mild left hydroureter. The same calculus was present in the distal left ureter on 07/09/2023. 2. Two stable oval circumscribed hypodense nonspecific lesions in the spleen measuring 2.5 cm and 1.5 cm and measuring 22 Hounsfield units in density. The lesions are most likely cystic, less likely with homogeneous hypercellular structure. 3. The prostate is mildly enlarged measuring 4.2 cm x 3.1 cm.
[2023-10-20] MEDS: sodium chloride 0.9% 1,000 ML 999 ML IV (03:51)
[2023-10-20] MEDS: ondansetron 2 mg/ML SDV 2 mL 4 MG IVP (03:51)
[2023-10-20] MEDS: fentaNYL 50 mcg/mL INJ 2mL IVP ×3 (03:52→05:33)
[2023-10-20] MEDS: ketorolac 30 mg/mL INJ IVP (03:52)
[2023-10-20 03:55] LABS: Basophils # 0.1 10^3/uL (0.0-0.1); Basophils % 0.9 %; Eosinophils # 0.3 10^3/uL (0.0-0.8); Eosinophils % 3.1 %; Hematocrit 45.9 % (37-53); Lymphocytes % 18.9 %; Mean Corpuscular HGB Conc 34.6 g/dL (30-55); Mean Corpuscular Hemoglobin 31.5 pg (27-33); Mean Corpuscular Volume 90.9 fl (82-101); Mean Platelet Volume 8.8 fL (7.4-10.4); Monocytes # 0.6 10^3/uL (0.2-0.9); Monocytes % 5.9 %; Neutrophils % 70.9 %; Nucleated Red Blood Cells % 0 %; Platelet Count 252 10^3/cmm (157-399); Red Blood Count 5.05 10^6/uL (3.85-5.65); Red Cell Distribution Width 11.6 % (12.1-15.1); White Blood Count 10.72 10^3/uL (3.29-11.43)
[2023-10-20 04:15] LABS: Alanine Aminotransferase 12 U/L (0-41); Albumin Level 4.8 g/dL (3.5-5.2); Alkaline Phosphatase 81 U/L (40-130); Anion Gap 20.6 (5-19); Aspartate Amino Transferase 14 U/L (0-40); Blood Urea Nitrogen 19 mg/dL (6-20); Calcium 9.7 mg/dL (8.5-10.5); Carbon Dioxide 19 mmol/L (22-29); Chloride 100 mmol/L (98-107); Creatinine Clr Calc Pharmacy 75.6328; Globulin 3.1 g/dL (1.3-4.6); Glomerular Filtration Rate 66.7 mL/min (90-130); Glucose 143 mg/dL (65-115); Lipase 37 U/L (13-60); Osmolality Calculated 287 mOsm/kg (285-295); Potassium 3.6 mmol/L (3.5-5.1); Sodium 136 mmol/L (136-145); Total Bilirubin 0.9 mg/dL (0.15-1.2); Total Protein 7.9 g/dL (6.6-8.7)
--- NOTE | 2023-10-20 04:16 | W.ED.ABDPA2 ---
HPI - Abdominal Pain General: Chief Complaint: Abdominal Pain Stated Complaint: lower left abd pain Time Seen by Provider: 10/20/23 03:41 History of Present Illness: 43 year old male with a history of kidney stones presenting this morning with left flank pain, left lower quadrant pain, nausea and vomiting. No fever. He does state that it feels like similar episodes of kidney stone. He has had a lithotripsy in the past. Associated Symptoms: Reports nausea and vomiting; Denies diarrhea, dysuria and fever(s) Review of Systems Const: Denies: fever(s) Card: Denies: chest pain or palpitations Resp: Denies: dyspnea, productive cough or non-productive cough GI: Reports: abdominal pain, nausea and vomiting; Denies: diarrhea : Reports: flank pain and urinary frequency; Denies: dysuria Musc: Reports: back pain; Denies: neck pain Physical Exam Const: GENERAL APPEARANCE: cooperative and ill appearing (in pain); not frail appearing HENMT: COMMON NORMALS: normocephalic, atraumatic and Normal external nose present HEAD & SCALP: normocephalic and atraumatic FACE & SINUS: normal facial exam and face symmetric NOSE: Normal external nose present Eye: COMMON NORMALS: Equal, round and reactive pupils present and EOMs intact bilaterally PUPIL: Yes Equal, round and reactive pupils present Neck/C-Spine: GENERAL: Yes trachea midline Chest: CHEST: Yes Symmetrical chest wall rise Resp: COMMON NORMALS: normal respiratory effort, No retractions, No use of accessory muscles and clear to auscultation bilaterally AUSCULTATION: clear to auscultation bilaterally Cardio: COMMON NORMALS: regular rate and regular rhythm RATE: regular rate RHYTHM: regular rhythm GI: COMMON NORMALS: Normal to inspection, nondistended, normoactive bowel sounds present PALPATION: Yes Tenderness to palpation present (GI) Details: LLQ : BLADDER/KIDNEY EXAM: Yes CVA tenderness on the left Back/Pelvis: GENERAL BACK: Yes CVA tenderness Extremity: COMMON NORMALS: no pedal edema Neuro: NICOLA COMA SCALE: document GCS findings Nicola coma scale eye opening: Spontaneous [place] coma scale verbal response: Orientated [place] coma scale motor response: Obey commands Nicola coma scale total score: 15 SENSORY EXAM: Yes extremities (intact) Psych: COMMON NORMALS: speech normal SPEECH: Yes normal speech Skin: COMMON NORMALS: no rashes or lesions noted GENERAL SKIN EXAM: no rashes or lesions noted Course Vital Signs: Vital signs: Vital Signs Temperature 97.9 F 10/20/23 03:36 Pulse Rate 76 10/20/23 06:31 Respiratory Rate 18 10/20/23 06:31 Blood Pressure 134/95 10/20/23 06:31 Pulse Oximetry 97 10/20/23 06:31 Oxygen Delivery Me thod Room Air 10/20/23 06:00 MDM - Abdominal Pain Medical Decision Making The patient is improved after IV fentanyl, toradol, and IV fluids. No infection on urinalysis. Laboratory otherwise not remarkable. 3mm calculus is apparent on CT scanned at the left uvj. He'll be treated conservatively given its small size. He has a urologist for a follow up, he will call later today. He knows to return for any worsening symptoms or fever, etcetera. Lab Data 10/20/23 03:44 10/20/23 03:44 Labs/Radiology: Radiology Impressions Abdomen/Pelvis CT 10/20/23 03:43 IMPRESSION: 1. A 3 mm calculus in the left ureterovesical junction, resulting in mild left hydronephrosis and mild left hydroureter. The same calculus was present in the distal left ureter on 07/09/2023. 2. Two stable oval circumscribed hypodense nonspecific lesions in the spleen measuring 2.5 cm and 1.5 cm and measuring 22 Hounsfield units in density. The lesions are most likely cystic, less likely with homogeneous hypercellular structure. 3. The prostate is mildly enlarged measuring 4.2 cm x 3.1 cm. Laboratory Results WBC 10.72 10^3/uL (3.29-11.43) 10/20/23 03:44 RBC 5.05 10^6/uL (3.85-5.65) 10/20/23 03:44 Hgb 15.90 g/dL (11.27-16.99) 10/20/23 03:44 Hct 45.9 % (37-53) 10/20/23 03:44 MCV 90.9 fl (82-101) 10/20/23 03:44 MCH 31.5 pg (27-33) 10/20/23 03:44 MCHC 34.6 g/dL (30-55) 10/20/23 03:44 RDW 11.6 % (12.1-15.1) L 10/20/23 03:44 Plt Count 252 10^3/cmm (157-399) 10/20/23 03:44 MPV 8.8 fL (7.4-10.4) 10/20/23 03:44 Neut % (Auto) 70.9 % 10/20/23 03:44 Lymph % (Auto) 18.9 % 10/20/23 03:44 [place] % (Auto) 5.9 % 10/20/23 03:44 Eos % (Auto) 3.1 % 10/20/23 03:44 Baso % (Auto) 0.9 % 10/20/23 03:44 Neut # (Auto) 7.60 10^3/uL (1.8-7.7) 10/20/23 03:44 Lymph # (Auto) 2.0 10^3/uL (0.8-4.8) 10/20/23 03:44 [place] # (Auto) 0.6 10^3/uL (0.2-0.9) 10/20/23 03:44 Eos # (Auto) 0.3 10^3/uL (0.0-0.8) 10/20/23 03:44 Baso # (Auto) 0.1 10^3/uL (0.0-0.1) 10/20/23 03:44 Nucleated RBC % (auto) 0 % 10/20/23 03:44 Nucleated RBCs # 0.0 /100WBC 10/20/23 03:44 Sodium 136 mmol/L (136-145) 10/20/23 03:44 Potassium 3.6 mmol/L (3.5-5.1) 10/20/23 03:44 Chloride 100 mmol/L (98-107) 10/20/23 03:44 Carbon Dioxide 19 mmol/L (22-29) L 10/20/23 03:44 Anion Gap 20.6 (5-19) H 10/20/23 03:44 BUN 19 mg/dL (6-20) 10/20/23 03:44 Creatinine 1.2 mg/dL (0.7-1.2) 10/20/23 03:44 GFR Calculation 66.7 mL/min (90-130) L 10/20/23 03:44 Glucose 143 mg/dL (65-115) H 10/20/23 03:44 Calculated Osmolality 287 mOsm/kg (285-295) 10/20/23 03:44 Calcium 9.7 mg/dL (8.5-10.5) 10/20/23 03:44 Total Bilirubin 0.9 mg/dL (0.15-1.2) 10/20/23 03:44 AST 14 U/L (0-40) 10/20/23 03:44 ALT 12 U/L (0-41) 10/20/23 03:44 Alkaline Phosphatase 81 U/L (40-130) 10/20/23 03:44 C-Reactive Protein 3.0 mg/L (0.0-4.9) 10/20/23 03:44 Total Protein 7.9 g/dL (6.6-8.7) 10/20/23 03:44 Albumin 4.8 g/dL (3.5-5.2) 10/20/23 03:44 Globulin 3.1 g/dL (1.3-4.6) 10/20/23 03:44 Lipase 37 U/L (13-60) 10/20/23 03:44 Urine Color Yellow (Yellow) 10/20/23 06:00 Urine Appearance Clear (CLEAR) 10/20/23 06:00 Urine pH 6 (5-7) 10/20/23 06:00 Ur Specific Carbon 1.020 (1.005-1.030) 10/20/23 06:00 Urine Protein Neg (Negative) 10/20/23 06:00 Urine Glucose (UA) Norm (Normal) 10/20/23 06:00 Urine Ketones 1+ (Negative) H 10/20/23 06:00 Urine Blood 2+ (Negative) H 10/20/23 06:00 Urine Nitrate Negative (Negative) 10/20/23 06:00 Urine Bilirubin Neg (Negative) 10/20/23 06:00 Urine Urobilinogen Neg mg/dL (Negative) 10/20/23 06:00 Ur Leukocyte Esterase Negative (Negative) 10/20/23 06:00 Urine RBC 5-10 /hpf (0-2) H 10/20/23 06:00 Urine WBC 0-4 /hpf (0-5) H 10/20/23 06:00 Ur Squamous Epith Cells 0-4 /hpf (0-5) H 10/20/23 06:00 Amorphous Sediment Not Reportable 10/20/23 06:00 Urine Bacteria Trace /hpf (NONE) 10/20/23 06:00 Hyaline Casts 0-4 /lpf H 10/20/23 06:00 Urine Mucus Trace /hpf 10/20/23 06:00 All radiology interpretation(s) finalized by discharge Discharge Plan Discharge Patient Disposition: Home Clinical Impression: Ureterolithiasis Condition: Stable Prescriptions: New Percocet 7.5-325 mg tablet 1 tab PO Q6H PRN (Reason: pain) Qty: 10 0RF Continued Flomax 0.4 mg capsule 0.4 mg PO DAILY Qty: 5 0RF ondansetron 4 mg tablet,disintegrating 4 mg PO Q6H PRN (Reason: nausea and vomiting) Qty: 14 0RF Discontinued hydrocodone-acetaminophen 5-325 mg tablet 1 tab PO Q6H PRN (Reason: pain) Qty: 7 0RF ondansetron 4 mg tablet,disintegrating 4 mg PO Q6H PRN (Reason: nausea and vomiting) Qty: 20 0RF hydrocodone-acetaminophen 5-325 mg tablet 1 tab PO Q8H PRN (Reason: pain) Qty: 20 0RF tamsulosin [Flomax] 0.4 mg capsule 0.4 mg PO DAILY Qty: 7 0RF hydrocodone-acetaminophen 5-325 mg tablet 1 tab PO Q6H PRN (Reason: pain) Qty: 14 0RF Discharge Orders: Discharge ED (Routine); Ordered 10/20/23 Ordered By: Gabino Diallo Referrals: Guillermina Sauer [employer] 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 Return for worsening pain despite treatment, vomiting liquids or medications, fever greater than 100, any other concerning symptoms. Call your doctor later today for a follow-up appointment. Coding Level of Care Code ED Application Packaging Consultant for Arik Ortiz
[2023-10-20 04:42] VITALS: BP 132/90; PULSE 86; O2SAT 100
[2023-10-20 05:33] VITALS: RESP 18; O2SAT 98
[2023-10-20 06:00] VITALS: BP 134/95; PULSE 80; RESP 18; O2SAT 97
[2023-10-20 06:14] LABS: Add Urine Microscopic? YES; Bacteria Urine TRACE /hpf; Bilirubin Urine Neg (Negative); Blood Urine 2+ (Negative); Glucose Urine UA Norm (Normal); Ketones Urine 1+ (Negative); Leukocyte Esterase Urine Negative (Negative); Mucus Urine TRACE /hpf; Nitrate Urine Negative (Negative); Protein Urine Neg (Negative); Squamous Epithelial Cell Urine 0-4 /hpf (0-5); Urine Appearance Clear (CLEAR); Urine Color Yellow (Yellow); Urobilinogen Urine Neg (Negative); WBC Urine 0-4 /hpf (0-5); pH Urine 6 (5-7)
[2023-10-20 06:15] LABS: Hyaline Casts Urine 0-4 /lpf
[2023-10-20 06:31] VITALS: BP 134/95; PULSE 76; RESP 18; O2SAT 97
== END 2023-10-20 06:27 | disposition home or self-care (01) ==
PROVIDERS: Emergency Provider Emergency Medicine; PCP Nurse Practitioner
DX: N13.2 Hydronephrosis with renal and ureteral calculous obstruction (principal)
CPT/HCPCS: 74176; 80053; 81001; 83690; 85025; 86140; 96374; 96375; 96376; 99285; J1885; J2405; J3010; J7030